=== PATIENT | male | born 1945 | race Caucasian/White ===

== ENCOUNTER → 2020-08-10 | Outpatient (CLI) | payer MEDICARE | LOC: KOH-I 10:43 | DX: Z87.891 Personal history of nicotine dependence (principal); R91.8 Other nonspecific abnormal finding of lung field | CPT/HCPCS: 71271 ==

== ENCOUNTER → 2021-08-11 | Outpatient (CLI) | payer MEDICARE | LOC: KOH-I 11:15 | DX: Z87.891 Personal history of nicotine dependence (principal); R91.8 Other nonspecific abnormal finding of lung field | CPT/HCPCS: 71271 ==

== ENCOUNTER → 2021-11-17 | Outpatient (CLI) | payer MEDICARE | LOC: KOH-I 14:38 | DX: M89.311 Hypertrophy of bone, right shoulder (principal); M50.30 Other cervical disc degeneration, unspecified cervical region | CPT/HCPCS: 72050; 73000 ==